=== PATIENT | female | born 1975 | race Caucasian/White ===

== ENCOUNTER 2022-04-25 06:47 | Day surgery (SDC) | payer OTHER ==
[2022-04-23 12:40] LABS: BASOPHILS ABSOLUTE AUTO 0.06 K/mm3 (0.00-0.23); BASOPHILS PERCENT AUTO 1 % (0-2); EOSINOPHILS ABSOLUTE AUTO 0.29 K/mm3 (0.00-0.68); EOSINOPHILS PERCENT AUTO 3 % (0-6); Hematocrit 38.7 % (33.0-51.0); Hemoglobin 12.2 g/dL (11.5-16.0); IMMATURE GRAN ABSOLUTE AUTO 0.03 K/mm3 (0.00-0.10); IMMATURE GRAN PERCENT AUTO 0 % (0-1); LYMPHOCYTES ABSOLUTE AUTO 3.05 K/mm3 (0.84-5.20); LYMPHOCYTES PERCENT AUTO 35 % (21-46); MONOCYTES ABSOLUTE AUTO 0.87 K/mm3 (0.16-1.47); MONOCYTES PERCENT AUTO 10 % (4-13); Mean Corpuscular HGB 24.4 pg (26.0-34.0); Mean Corpuscular HGB Conc 31.5 g/dL (31.5-36.5); Mean Corpuscular Volume 77 fL (80-100); Mean Platelet Volume 9.5 fL (9.1-12.4); NEUTROPHILS ABSOLUTE AUTO 4.43 K/mm3 (1.96-9.15); NEUTROPHILS PERCENT AUTO 51 % (41-73); Platelet Count 450 K/mm3 (150-400); RDW Coefficient Variation 15.5 % (11.7-14.2); RDW Standard Deviation 43.7 fL (35.1-46.3); Red Blood Cell Count 5.01 M/mm3 (3.80-5.20); White Blood Cell Count 8.73 K/mm3 (4.00-11.30)
[2022-04-23 13:47] LABS: Bun/Creatinine Ratio 9.5 (12.0-20.0); Calcium, Blood 9.4 mg/dL (8.5-10.1); Creatinine, Blood 0.84 mg/dL (0.40-1.00); Potassium, Blood 3.4 mmol/L (3.5-5.5)
[~2022-04-25] VITALS: Ht 170.2 cm; Wt 116.9 kg
[~2022-04-25 06:47] MED LIST: ALBU2.5V5; ALBU90OI INH; FLUT1DIS2 INH
--- NOTE | 2022-04-25 07:33 | NUR ---
Ambulatory in Day Surgery History, Chart, Medications and Allergies reviewed before start of procedure. Lungs clear T/O to Auscultation. Pre-Op teaching done. Pt verbalizes understanding. Patient States Post-Procedure ride home has been arranged with .
[2022-04-25] MEDS ORDERED: DOCU100 PO (13:13)
[2022-04-25] MEDS ORDERED: IBUP200 (13:14)
[2022-04-25] MEDS ORDERED: ACET325 (13:14)
--- NOTE | 2022-04-25 16:05 | NUR ---
discharged PT TOLERATING PO, NAUSEA RESOLVED. PAIN CONTROLLED ADEQUATELY. PT DESIRED TO BE DC'D. VSS. PT AMBULATED INDEPENDENTLY IN ROOM AND VOIDED TWICE. DC'D IV, CATHETER INTACT. REVIEWED DC INSTRUCTION W/PT AND SPOUSE; VERBALIZED UNDERSTANDING. PT LEFT UNIT IN WC ACCOMPANIED BY SPOUSE W/POSSESSIONS AND DC PAPERWORK IN HAND.
== END 2022-04-25 15:55 | disposition home or self-care (01) ==
LOC: ORSCMMR 06:47 → ORD 08:30 → SURS 11:39 → ORSCMMR 15:55
PROVIDERS: Obstetrics & Gynecology
PROC: 0UB74ZZ Excision of Bilateral Fallopian Tubes, Percutaneous Endoscopic Approach (ICD-10-PCS; principal; 2022-04-25 08:30)
PROC: 0UT94ZZ Resection of Uterus, Percutaneous Endoscopic Approach (ICD-10-PCS; principal; 2022-04-25 08:30)
DX: N92.0 Excessive and frequent menstruation with regular cycle (principal); D25.9 Leiomyoma of uterus, unspecified; N85.2 Hypertrophy of uterus; Z80.3 Family history of malignant neoplasm of breast; Z80.41 Family history of malignant neoplasm of ovary; J45.909 Unspecified asthma, uncomplicated; F41.9 Anxiety disorder, unspecified; E66.01 Morbid (severe) obesity due to excess calories; Z68.41 Body mass index [BMI] 40.0-44.9, adult
CPT/HCPCS: 58573; S2900; 36415; 80048; 84703; 85025; 86850; 86900; 86901; 88307; A9270; J0690; J1100; J1170; J1885; J2250; J2405; J2704; J2795; J3010; J7120